=== PATIENT | female | born 1955 | race Caucasian/White ===

== ENCOUNTER 2019-08-01 09:31 | Emergency (ER) | payer BC ==
[~2019-08-01] VITALS: Ht 162.6 cm; Wt 77.3 kg
[~2019-08-01 09:31] MED LIST: CEFD300C3 PO; DRON400T2 PO; DRON400T6 PO; LOP25T PO; NITR0.4T51 SL
[2019-08-01] MEDS ORDERED: LORazepam 2 mg/ml vial IV ONE (09:45)
[2019-08-01 10:02] LABS: BASOPHILS # (AUTO) 0.1 X10'3 (0-0.2); BASOPHILS % (AUTO) 0.8 % (0-1); EOSINOPHILS # (AUTO) 0.1 X10'3 (0-0.9); EOSINOPHILS % (AUTO) 1.8 % (0-6); HEMATOCRIT 43.7 % (35.0-45.0); HEMOGLOBIN 14.7 g/dl (12.0-16.0); LYMPHOCYTES # (AUTO) 1.8 X10'3 (1.1-4.8); LYMPHOCYTES % (AUTO) 23.9 % (21-51); MEAN CORPUSCULAR HEMOGLOBIN 29.1 PG (27.0-31.0); MEAN CORPUSCULAR HGB CONC 33.6 g/dL (33.0-36.5); MEAN CORPUSCULAR VOLUME 86.5 FL (78-98); MEAN PLATELET VOLUME 9.9 FL (7.4-10.4); MONOCYTES # (AUTO) 0.5 X10'3 (0-0.9); NEUTROPHILS # (AUTO) 5.1 X10'3 (1.8-7.7); NEUTROPHILS % (AUTO) 67.5 % (42-75); PLATELET COUNT 187 X10'3 (140-440); RED BLOOD COUNT 5.05 X10'6 (4.20-5.60); RED CELL DISTRIBUTION WIDTH 13.6 % (11.5-14.5); WHITE BLOOD COUNT 7.6 X10'3 (4.5-11.0)
[2019-08-01 10:19] LABS: ALBUMIN/GLOBULIN RATIO 1.1 (1.1-1.5); ANION GAP 3 (8-16); ASPARTATE AMINO TRANSFERASE 27 U/L (10-37); BILIRUBIN,TOTAL 0.3 MG/DL (0.1-1.0); BLOOD UREA NITROGEN 14 MG/DL (7-18); BUN/CREATININE RATIO 19.7 (6.6-38.0); CALCIUM 9.3 MG/DL (8.5-10.1); CHLORIDE 103 MMOL/L (99-107); CREATININE 0.71 MG/DL (0.40-0.90); GLUCOSE 118 MG/DL (70-104); SODIUM 135 MMOL/L (135-145); TOTAL CARBON DIOXIDE 29.3 MMOL/L (24-32); TOTAL PROTEIN 7.7 G/DL (6.4-8.2); eGFR 83 ML/MIN
[2019-08-01 10:20] LABS: ALANINE AMINOTRANSFERASE 42 U/L (12-78); ALKALINE PHOSPHATASE 133 IU/L (46-116)
--- NOTE | 2019-08-01 10:33 | NUR ---
Pt anxious and appears fixated on monitor values, all WNL. Redirected with effort, but for only brief periods. Will continue to monitor anxiety for medication efficacy.
--- NOTE | 2019-08-01 10:45 | NUR ---
pt assisted to restroom,no c/o dizziness ,sob or chest pain.pt denies any concern ,brought pt back to bed vitals monitored and charted within normal range.
--- NOTE | 2019-08-01 11:11 | NUR ---
Assumed care, Pt resting comfortably in no acute distress. Pt has no complaints of chest pain.
[2019-08-01] MEDS ORDERED: LORA-269 PO (12:59)
[2019-08-01 13:29] VITALS: BP 141/74
== END 2019-08-01 13:30 | disposition home or self-care (01) ==
LOC: ER 09:32
DX: I16.1 Hypertensive emergency (principal); I10 Essential (primary) hypertension; F41.9 Anxiety disorder, unspecified; I48.91 Unspecified atrial fibrillation; Z98.890 Other specified postprocedural states; Z88.8 Allergy status to other drugs, medicaments and biological substances; Z79.899 Other long term (current) drug therapy
CPT/HCPCS: 36415; 71045; 80053; 84484; 85025; 93005; 96374; 99285; J2060